=== PATIENT | female | born 1950 | race Caucasian/White ===

== ENCOUNTER → 2016-05-17 | Outpatient (CLI) | payer OTHER ==
--- NOTE | 2016-05-17 11:27 | MR ---
MRI Lower Extremity, Left Knee History: Knee pain. Evaluate for meniscal tear. ICD-10 code S83.242A. Comparison: None. Technique: MRI was performed of the left knee using a 3 [employer] MRI system. Axial, sagittal, and will l images were obtained with standard imaging sequences. Findings: General: Suprapatellar joint effusion with synovial proliferation. Zamarripa cyst is seen extending crani ocaudally 0.5 cm with septations. Loose body is seen along the muscular tissues junction of the popli teus measuring 7 mm. Ligaments and Tendons: Anterior cruciate and posterior cruciate ligaments are intact. Medial collater al ligament is unremarkable. Mild edema along the pes anserinus. Iliotibial band is unremarkable. The re is mild abnormal signal intensity seen in the proximal fibular collateral ligament. Biceps femoris is unremarkable. There is mild abnormal signal intensity in the popliteus tendon. Menisci and Cartilage: Abnormal signal intensity is seen in the posterior horn medial meniscus extend ing obliquely to the inferior articular surface suggesting a small undersurface tear and fraying at t he free edge. Cartilage signal abnormality and mild thinning are seen in the central weightbearing po rtion of the medial compartment. There is absence of a large portion of the posterior horn and body of the lateral meniscus at the pos terior lateral periphery. There is upper surface tear in the remaining posterior horn toward the meni scal root. Displaced meniscal fragment is seen in the superior meniscal recess between the iliotibial band and lateral femoral condyle measuring 8 mm. There is upper surface tear in the anterior horn la teral meniscus. Cartilage signal abnormality and thinning are seen in the lateral compartment with fu ll-thickness cartilage loss in the posterior weightbearing portion. Loose body is seen anterior to th e tibial attachment of the anterior horn lateral meniscus measuring 7 mm. Extensor Mechanism: Cartilage signal abnormality and thinning are seen in the patella and trochlear g roove. Quadriceps tendon and patellar tendon are unremarkable. Impression: 1. Complex tear of the lateral meniscus with absence of the majority of the posterior horn and body o f the posterior lateral periphery and a displaced meniscal fragment in the superior meniscal recess. 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 2. Small undersurface tear posterior horn medial meniscus and fraying at the free edge. Grade 1 to ea rly grade 2 articular cartilage disease medial compartment. 3. 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 4. Mild tendinopathy proximal fibular collateral ligament and popliteus tendon. 5. Suprapatellar joint effusion with synovial proliferation. Loose bodies. Zamarripa cyst.
--- NOTE | 2016-05-17 14:29 | MA ---
Screening Digital Mammogram With iCAD Analysis Clinical Indications: Routine screening. Technique: Standard cephalocaudal projections were obtained. Digital breast tomosynthesis was perform ed in the MLO projection with reconstruction at 1.0-mm slice thickness and composite MLO views recons tructed. Markers were placed on skin lesions. [facility]. Comparison: July 2012, June 2011, March 2010, August 2008, October 2006. Breast density: Type B; Scattered fibroglandular densities. Findings: CAD was reviewed. No spiculated masses, suspicious calcifications or secondary signs of mal ignancy are seen. There has been no significant change in the appearance of either breast. Impression: Negative mammogram. BI-RADS 1. Recommendation: Routine mammographic screening in one year as long as physical [facility]. Negative mammography should not preclude additional workup of a clinically suspicious finding. The patient's information is entered into a reminder system with a target due date for her next mammo gram.
--- NOTE | 2016-05-17 17:41 | DX ---
DEXA Bone Mineral Densitometry Indication: 65-year-old postmenopausal woman with history of hysterectomy and family history of oste oporosis. Patient currently takes supplemental calcium, vitamin D and multivitamins. Comparison: DEXA scan dated November 06, 2002. Technique: Bone Mineral Densitometry (BMD) by [employer] X-Ray Absorptiometry (DEXA) was performed utilizing the [employer] scanner. The lumbar spine was evaluated in the AP projection. The bilate ral hips and left forearm were evaluated in the AP projection. Vertebral fracture assessment was also performed. Findings: AP Lumbar Spine: The L1, L2, L3 and L4 vertebral bodies were evaluated. BMD: 1.088 gm/cm2 T-score: -0.9 SD Z-score: 0.1 SD No change AP Left Hip: Neck BMD: 0.819 gm/cm2 T-score: -1.6 SD Z-score: -0.4 SD Decreased density AP Right Hip: Neck BMD: 0.888 gm/cm2 T-score: -1.1 SD Z-score: 0.1 SD AP Left Forearm, 04/20: BMD: 0.849 gm/cm2 T-score: -0.3 SD Z-score: 1.3 SD Vertebral Fracture Assessment: No significant fracture deformity. No prevertebral aortic calcificati on, significant marginal bone spurring, facet arthrosis, or intrinsic vertebral body sclerosis that would affect the accuracy of the lumbar spine BMD measurement. Conclusion: Considering the lowest measured site (left hip), the patient has low bone mineral densit y with a T-score of -1.6. The ten year risk for any major osteoporotic fracture is 15% and for a hip fracture is 1.9%. Any bone loss in this patient is probably related to aging or estrogen deficiency. Recommendations: To prevent osteoporosis and to promote bone density, consider the following recomme ndations: 1. Pursue a regular regimen of weightbearing and muscle-strengthening exercises in order to reduce t he risk of falls and fracture (as tolerated by the patient's general medical condition). 2. Ensure that total daily dietary calcium intake is maximized. 3. Check serum hydroxy vitamin D3 (normal >30ng/ml). 4. Ensure daily intake of vitamin D is 800 international units. 5. Consider follow up DEXA scan in two years to assess the rate of bone loss in this patient. 6. Consider excluding common secondary causes of bone loss. Laboratory evaluation might include CBC , TSH, calcium, phosphorous, albumin, creatinine, alkaline phosphatase, PTH, serum, electrophoresis ( SPEP or UPEP), antitissue transglutaminase antibody levels (celiac disease), and hydroxy vitamin D3, as well as a 24-hour urine calcium.
== END ==
LOC: FIMAGING 09:31
PROVIDERS: ATTEND Family Medicine Sports Medicine
DX: Z12.31 Encounter for screening mammogram for malignant neoplasm of breast (principal); M85.80 Other specified disorders of bone density and structure, unspecified site; S83.242A Other tear of medial meniscus, current injury, left knee, initial encounter; M22.42 Chondromalacia patellae, left knee; M25.462 Effusion, left knee; M71.22 Synovial cyst of popliteal space [Baker], left knee; E66.9 Obesity, unspecified; J45.909 Unspecified asthma, uncomplicated
CPT/HCPCS: G0202

== ENCOUNTER → 2016-05-17 | Outpatient (CLI) | payer OTHER | LOC: FIMAGING 09:27 | PROVIDERS: ATTEND Family Medicine Sports Medicine | DX: E66.9 Obesity, unspecified (principal); J45.909 Unspecified asthma, uncomplicated; S83.242A Other tear of medial meniscus, current injury, left knee, initial encounter; Z13.818 Encounter for screening for other digestive system disorders ==

== ENCOUNTER → 2016-07-27 | Outpatient (CLI) | payer OTHER | LOC: FIMAGING 15:58 | PROVIDERS: ATTEND Family Medicine Sports Medicine | DX: R07.9 Chest pain, unspecified (principal); R07.81 Pleurodynia ==

== ENCOUNTER → 2017-08-17 | Outpatient (CLI) | payer OTHER | LOC: FIMAGING 11:11 | PROVIDERS: ATTEND Family Medicine Sports Medicine | DX: Z12.31 Encounter for screening mammogram for malignant neoplasm of breast (principal) ==

== ENCOUNTER → 2018-01-25 | Outpatient (CLI) | payer OTHER | LOC: BHFA 09:15 | PROVIDERS: ATTEND Internal Medicine Cardiovascular Disease | DX: H53.9 Unspecified visual disturbance (principal); E78.5 Hyperlipidemia, unspecified | CPT/HCPCS: 93880-PO ==